=== PATIENT | female | born 2000 | race Two or more races ===

== ENCOUNTER 2024-01-19 06:28 | Emergency (ER) | payer OTHER, SELFPAY ==
[2024-01-19 06:35] VITALS: BP 103/60; PULSE 76; TEMP 36.7; O2SAT 95; BMI 27.4
--- NOTE | 2024-01-19 07:07 | ECG_ITS ---
The [facility] Test Date: 2024-01-19 Pat Name: CLAUDIA BILLINGSLEY Department: Room: - Gender: Female Claims Director: : [id number] Requested By: Order Number: [id number] Reading MD: JACKIE ABDALLA Measurements Intervals [place] Rate: 65 P: 22 ID: [id number] QRS: 17 QRSD: 78 T: -30 QT: 388 QTc: 399 Interpretive Statements 1100 Sinus rhythm 1102 Sinus arrhythmia 8102 Low QRS voltage in chest leads Nonspecific T wave changes inferolateral leads, clinical correlation advised 9120 atypical ECG No previous ECG available for comparison Electronically Signed On 01-20-2024 6:44:15 EDT by JACKIE ABDALLA
[2024-01-19 07:22] LABS: Basophils Percent Auto 0.3 % (0.2-2.0); Eosinophils Absolute Auto 0.1 10^3/uL (0.0-0.7); Eosinophils Percent Auto 0.7 % (0.9-7.0); Hematocrit 34.8 % (36.0-48.0); Hemoglobin 11.5 g/dL (12.0-16.0); Immature Granulocytes Abs Auto 0.04 10^3/uL (0.00-0.03); Immature Granulocytes Pct Auto 0.5 % (0.0-0.5); Lymphocytes Absolute Auto 2.1 10^3/uL (1.2-3.8); Lymphocytes Percent Auto 28.2 % (20.5-60.0); Mean Corpuscular Volume 84.9 fL (81.0-99.0); Monocytes Absolute Auto 0.6 10^3/uL (0.3-0.8); Monocytes Percent Auto 7.8 % (1.7-12.0); Neutrophils Absolute Auto 4.7 10^3/uL (1.4-6.5); Neutrophils Percent Auto 62.5 % (43.0-75.0); Platelet Count 188 10^3/uL (150-450); White Blood Count 7.5 10^3/uL (4.0-11.0)
--- NOTE | 2024-01-19 07:25 | ED.ABDPAIN1 ---
HPI - Abdominal Pain General Chief Complaint: Abdominal Pain Stated Complaint: ABDOMINAL PAIN Time Seen by Provider: 01/19/24 07:01 Source: patient Mode of arrival: walk-in Limitations: no limitations History of Present Illness HPI narrative: The patient is a 23-year-old female with history of being 19 weeks , the patient mentioned that this is her first , 2 days ago she had some suprapubic cramping and today she is so some spotting, it was initially some bright blood but then it became dark blood and it is only spotting so far No nausea no vomiting but she mentioned having some dizziness over the last 2 days The dizziness sometimes associated with nausea and vomiting and whenever she eats she feels better Related Data Allergies Allergy/AdvReac Type Severity Reaction Status Date / Time No Known Drug Allergies Allergy Verified 01/19/24 06:35 Review of Systems ROS Status of ROS 10 or more systems reviewed and unremarkable except as noted in history and below PFSH PFSH Social History Little interest or pleasure in doing things: not at all Feeling down, depressed, or hopeless: not at all Exam Narrative Exam Narrative: Nurses notes and vital signs reviewed and patient is not hypoxic. General: Well-appearing and in no apparent distress. Skin: Warm, dry, no pallor noted. No rash. Head: Normocephalic, atraumatic. Neck: Supple, non-tender. Eye: Pupils are equal, round and EOMI. No scleral icterus. Ears, Nose, Mouth, and Throat: TM are clear, no nasal mucosal hypertrophy. Oral mucosa is moist, no posterior oropharynx erythema, uvula is mid-line Cardiovascular: Regular Rate and Rhythm without murmur, gallop or rub. Respiratory: No accessory muscle use or respiratory distress. Lungs are clear to auscultation, no wheezing, rales or rhonchi Chest Wall: no tenderness Back: No midline thoracic or lumbar vertebral tenderness. No CVA tenderness Musculoskeletal: normal ROM, no calf or popliteal tenderness, no lower extremity edema/swelling GI: Abdomen is soft, non-distended. Normal bowel sounds. No masses appreciated. No tenderness to palpation. No rebound, guarding, or rigidity noted. Neurological: A&O x4. No cranial nerve dysfunction observed. No truncal ataxia. Moves all extremities. Sensation intact. Psychiatric: Cooperative and interactive. Normal mood and affect. Constitutional Vital Signs, click to edit/add: Last Vital Signs Temp 98.1 F 01/19/24 06:35 Pulse 76 01/19/24 06:35 Resp 18 01/19/24 06:35 BP 103/60 01/19/24 06:35 Pulse Ox 95 01/19/24 06:35 O2 Del Method Room Air 01/19/24 06:35 Course Vital Signs Vital signs: Vital Signs Temperature 98.1 F 01/19/24 06:35 Pulse Rate 76 01/19/24 06:35 Respiratory Rate 18 01/19/24 06:35 Blood Pressure 103/60 01/19/24 06:35 Pulse Oximetry 95 01/19/24 06:35 Oxygen Delivery Method Room Air 01/19/24 06:35 Temperature 98.1 F 01/19/24 06:35 Pulse Rate 76 01/19/24 06:35 Respiratory Rate 18 01/19/24 06:35 Blood Pressure 103/60 01/19/24 06:35 Pulse Oximetry 95 01/19/24 06:35 Oxygen Delivery Method Room Air 01/19/24 06:35 MDM - Abdominal Pain MDM Narrative Medical decision making narrative: The patient EKG showing sinus rhythm with a heart rate of [address] elevation or depression The patient had blood group with a positive CBC and chemistry showed no pathology and the patient urinalysis showed no pathology as well She did go to the bathroom she was here and she had no hematuria The patient ultrasound of the pelvis showed no acute pathology and no subchorionic hematoma or any abnormal finding other than normal intrauterine with a heart rate was 144 on initial evaluation Right now I did explain to the patient that bleeding with could put her at risk for threatened miscarriage but right now she will be just resting with avoiding any sexual encounter follow-up with her OB doctor within a week The patient is to follow up with primary care physician in next 2-3 days or to return to the emergency department should any of the signs or symptoms worsen or new symptoms develop. The patient agrees with the following Diagnosis and Treatment plan and the patient will be discharged home. Lab Data Labs: Lab Results 01/19/24 01/19/24 Range/Units 06:45 07:38 WBC 7.5 (4.0-11.0) 10^3/uL RBC 4.10 L (4.20-5.40) 10^6/uL Hgb 11.5 L (12.0-16.0) g/dL Hct 34.8 L (36.0-48.0) % MCV 84.9 (81.0-99.0) fL MCH 28.0 (26.7-34.0) pg MCHC 33.0 (29.9-35.2) g/dL RDW 13.0 (11.0-15.0) % Plt Count 188 (150-450) 10^3/uL MPV 10.0 (9.5-13.5) fL Neut % (Auto) 62.5 (43.0-75.0) % Lymph % (Auto) 28.2 (20.5-60.0) % [place] % (Auto) 7.8 (1.7-12.0) % Eos % (Auto) 0.7 L (0.9-7.0) % Baso % (Auto) 0.3 (0.2-2.0) % Neut # (Auto) 4.7 (1.4-6.5) 10^3/uL Lymph # (Auto) 2.1 (1.2-3.8) 10^3/uL [place] # (Auto) 0.6 (0.3-0.8) 10^3/uL Eos # (Auto) 0.1 (0.0-0.7) 10^3/uL Baso # (Auto) 0.0 (0.0-0.1) 10^3/uL Abs Immat Gran (auto) 0.04 H (0.00-0.03) 10^3/uL Imm/Tot Granulo (auto) 0.5 (0.0-0.5) % Sodium 141 (136-145) mmol/L Potassium 3.5 (3.5-5.1) mmol/L Chloride 105 (98-107) mmol/L Carbon Dioxide 25.2 (21.0-32.0) mmol/L Anion Gap 14.3 BUN 9.0 (7.0-18.0) mg/dL Creatinine 0.64 (0.55-1.02) mg/dL Est GFR ( Amer) >60 (>=60 mL/min/1.73m^2) Est GFR (Non-Af Amer) >60 (>=60 mL/min/1.73m^2) BUN/Creatinine Ratio 14.1 Glucose 85 (74-106) mg/dL Calcium 8.6 (8.5-10.1) mg/dL Total Bilirubin 0.3 (0.2-1.0) mg/dL AST 14 L (15-37) U/L ALT 15 (14-59) U/L Alkaline Phosphatase 45 L (46-116) U/L Troponin I High Sens <4.0 L (4.0-51.3) pg/mL Total Protein 6.6 (6.4-8.2) g/dL Albumin 2.8 L (3.4-5.0) g/dL Globulin 3.8 g/dL Albumin/Globulin Ratio 0.7 HCG, Quant 99466 mIU/mL Urine Color Lt. yellow (YELLOW) Urine Clarity Clear (CLEAR) Urine pH 6.0 (5.0-9.0) Ur Specific [place] >=1.030 A (1.005-1.025) Urine Protein Negative (NEG/TRACE) mg/dL Urine Glucose (UA) Negative (NEGATIVE) mg/dL Urine Ketones Negative (NEGATIVE) mg/dL Urine Occult Blood Negative (NEGATIVE) Urine Nitrite Negative (NEGATIVE) Urine Bilirubin Negative (NEGATIVE) Urine Urobilinogen 0.2 (0.2-1.0) EU/dL Ur Leukocyte Esterase Negative (NEGATIVE) Urine Opiates Screen Negative (NEGATIVE) Ur Buprenorphine Scrn Negative (NEGATIVE) Ur Oxycodone Screen Negative (NEGATIVE) Urine Methadone Screen Negative (NEGATIVE) Ur Barbiturates Screen Negative (NEGATIVE) U Tricyclic Antidepress Negative (NEGATIVE) Ur Phencyclidine Scrn Negative (NEGATIVE) Ur Amphetamines Screen Negative (NEGATIVE) U Methamphetamines Scrn Negative (NEGATIVE) U Benzodiazepines Scrn Negative (NEGATIVE) Urine Cocaine Screen Negative (NEGATIVE) U Cannabinoids Screen Negative (NEGATIVE) Discharge Plan Discharge Chief Complaint: Abdominal Pain Clinical Impression: Vaginal bleeding during Patient Disposition: Home, Self-Care Time of Disposition Decision: 08:51 Condition: Good Print Language: Tunisian Instructions: Threatened Miscarriage (ED) Referrals: Physician,Non-Staff, MD [Primary Care Provider] - 1 week
[2024-01-19 07:43] LABS: Alanine Aminotransferase 15 U/L (14-59); Albumin Globulin Ratio 0.7; Albumin Level 2.8 g/dL (3.4-5.0); Alkaline Phosphatase 45 U/L (46-116); Anion Gap 14.3; Aspartate Amino Transferase 14 U/L (15-37); BUN Creatinine Ratio 14.1; Bilirubin Total 0.3 mg/dL (0.2-1.0); Calcium 8.6 mg/dL (8.5-10.1); Carbon Dioxide 25.2 mmol/L (21.0-32.0); Chloride 105 mmol/L (98-107); Estimated GFR (African America >60 (>=60 mL/min/1.73m^2); Estimated GFR (Non-African Ame >60 (>=60 mL/min/1.73m^2); Globulin 3.8 g/dL; Glucose 85 mg/dL (74-106); Potassium 3.5 mmol/L (3.5-5.1); Sodium 141 mmol/L (136-145); Total Protein 6.6 g/dL (6.4-8.2)
[2024-01-19 07:52] LABS: Bilirubin Urine NEGATIVE (NEGATIVE); Blood Urine NEGATIVE (NEGATIVE); Clarity Urine CLEAR (CLEAR); Color Urine LT. YELLOW (YELLOW); Glucose Urine UA NEGATIVE (NEGATIVE); Ketones Urine NEGATIVE (NEGATIVE); Leukocyte Esterase Urine NEGATIVE (NEGATIVE); Nitrite Urine NEGATIVE (NEGATIVE); Protein Urine NEGATIVE (NEG/TRACE); Specific Gravity Urine >=1.030 (1.005-1.025); Urobilinogen Urine 0.2 EU/dL (0.2-1.0)
[2024-01-19 08:03] LABS: Troponin I High Sensitivity <4.0 pg/mL (4.0-51.3)
[2024-01-19 08:04] LABS: HCG Quantitative 15447 mIU/mL
[2024-01-19 08:05] LABS: Urine Microscopic Indicated NO
--- NOTE | 2024-01-19 08:09 | US_ITS ---
The [address] [address] Patient Name: CLAUDIA BILLINGSLEY MRN: [id number] date: 2000 Sex: F Assigned Patient Location: ER Current Patient Location: ER Accession/Order Number: [id number] Exam Date: 01/19/2024 08:15 Report Date: 01/19/2024 08:43 At the request of: BRYAN HAYS Procedure: US OB placenta EXAMINATION: US OB placenta HISTORY: 19 weeks vaginal bleeding , cramping COMPARISON: No relevant comparison available. FINDINGS: PLACENTA: Posterior fundal with lower margin 3.3 cm from os. No abruption or subchorionic hematoma. CERVIX LENGTH: 3.3 cm; closed. HEART RATE: 154 bpm OTHER: None. US/US OB placenta IMPRESSION: 1. Single live intrauterine . 2. No evidence of placental abruption or subchorionic hematoma. Electronically authenticated by: LUCINA GÓMEZ Date: 01/19/2024 08:43
[2024-01-19 08:10] LABS: Amphetamine Screen Urine NEGATIVE (NEGATIVE); Barbiturates Screen Urine NEGATIVE (NEGATIVE); Benzodiazepines Screen Urine NEGATIVE (NEGATIVE); Buprenorphine Screen Urine NEGATIVE (NEGATIVE); Cannabinoid Screen Urine NEGATIVE (NEGATIVE); Cocaine Screen Urine NEGATIVE (NEGATIVE); Methadone Screen Urine NEGATIVE (NEGATIVE); Methamphetamines Screen Urine NEGATIVE (NEGATIVE); Opiate Screen Urine NEGATIVE (NEGATIVE); Oxycodone Screen Urine NEGATIVE (NEGATIVE); Phencyclidine Screen Urine NEGATIVE (NEGATIVE); Tricyclic Antidepressant Urine NEGATIVE (NEGATIVE)
== END 2024-01-19 09:04 | disposition home or self-care (01) ==
PROVIDERS: Emergency Provider Emergency Medicine
DX: O46.92 Antepartum hemorrhage, unspecified, second trimester (principal); Z3A.19 19 weeks gestation of pregnancy
CPT/HCPCS: 36415; 76815; 80053; 80307; 81003; 84484; 84702; 85025; 93005; 99285